=== PATIENT | male | born 1985 | race American Indian/Alaskan Native ===

== ENCOUNTER 2017-08-18 00:22 | Emergency (ER) | payer MEDICAID ==
--- NOTE | 2017-08-18 01:37 | Emergency Department Report ---
HPI - General Chief Complaint: Medical Clearance Time Seen by Provider: 08/18/17 01:21 - HPI HPI: This is a 31-year-old male who identifies as female presents to the emergency department requesting a medication refill of the HIV medication Atripla, as well as Periactin for appetite stimulation. She denies any chest pain, fever, cough, dysuria or any other physical complaints at this time and says that she only can for medication refill. She has been out of medications for 3 days. She says that she has tried to get in with the health department but keeps getting a voicemail and has been unable to make an appointment. She does not have a primary care physician or infectious disease physician. ED Past Medical Hx - Past Medical History Hx of Cancer: Yes (Oral) Hx Asthma: Yes Hx HIV: Yes - Surgical History Additional Surgical History: Left palate removal. - Social History Smoking Status: Never Smoker Substance Use Type: Marijuana - Medications Home Medications: Home Medications Medication Instructions Recorded Confirmed Last Taken Type Atripla Tablet 1 tab PO DAILY #30 08/18/17 Unknown Rx Cyproheptadine [Periactin] 4 mg PO TID #90 tablet 08/18/17 Unknown Rx ED Review of Systems ROS: Stated complaint: MED REFILL Other details as noted in HPI Comment: All other systems reviewed and negative Constitutional: denies: chills, fever Eyes: denies: eye pain, eye discharge, vision change ENT: denies: ear pain, throat pain Respiratory: denies: cough, shortness of breath, wheezing Cardiovascular: denies: chest pain, palpitations Gastrointestinal: denies: abdominal pain, nausea, diarrhea Genitourinary: denies: urgency, dysuria Musculoskeletal: denies: back pain, joint swelling, arthralgia Skin: denies: rash, lesions Neurological: denies: headache, weakness, paresthesias Physical Exam - Physical Exam Vital Signs: Vital Signs 08/18/17 00:30 Temperature 98.4 F Pulse Rate 97 H Respiratory 16 Rate Blood Pressure 131/71 O2 Sat by Pulse 98 Oximetry Physical Exam: GENERAL: The patient is well-developed well-nourished. HENT: Normocephalic. Atraumatic. Patient has moist mucous membranes. EYES: Extraocular motions are intact. Pupils equal reactive to light bilaterally. NECK: Supple. Trachea is midline. CHEST/LUNGS: Clear to auscultation. There is no respiratory distress noted. HEART/CARDIOVASCULAR: Regular. There is no tachycardia. There is no murmur. ABDOMEN: Abdomen is soft, nontender. Patient has normal bowel sounds. There is no abdominal distention. SKIN: Skin is warm and dry. NEURO: The patient is awake, alert, and oriented. The patient is cooperative. The patient has no focal neurologic deficits. The patient has normal speech. MUSCULOSKELETAL: There is no tenderness or deformity. There is no limitation range of motion. There is no evidence of acute injury. ED Course Vital Signs 08/18/17 00:30 Temperature 98.4 F Pulse Rate 97 H Respiratory 16 Rate Blood Pressure 131/71 O2 Sat by Pulse 98 Oximetry ED Medical Decision Making - Medical Decision Making The patient denies any physical complaints at this time. She is been out of her medication for 3 days. She was given a prescription refill of the HIV medication, the Periactin and she was given referrals for primary care and infectious disease. She was encouraged to return to the emergency Department with any acute distress. Critical Care Time: No Critical care attestation.: If time is entered above; I have spent that time in minutes in the direct care of this critically ill patient, excluding procedure time. ED Disposition Clinical Impression: Medication refill, History of HIV infection Disposition: TO HOME OR SELFCARE Is pt being admited?: No Condition: Good Additional Instructions: I have given you some names of primary care physicians as well as infectious disease. I do not know if these physicians take your particular insurance. Return to the emergency department with any chest pain, shortness of breath, development of fever or any acute distress. Prescriptions: Atripla Tablet 1 tab PO DAILY #30 Cyproheptadine [Periactin] 4 mg PO TID #90 tablet Referrals: JAVI KAPLAN MD [Primary Care Provider] - 3-5 Days SRAA BURGESS MD [Staff Physician] - 3-5 Days NIECY FERRIS MD [Staff Physician] - 3-5 Days [facility] [Outside] - 3-[address] [facility] [Outside] - 3-5 Days Time of Disposition: 01:38
[2017-08-18 01:41] VITALS: BP 123/78
== END 2017-08-18 01:43 | disposition home or self-care (01) ==
LOC: ED 00:22
DX: Z76.0 Encounter for issue of repeat prescription (principal); J45.909 Unspecified asthma, uncomplicated; F12.10 Cannabis abuse, uncomplicated
CPT/HCPCS: 99282

== ENCOUNTER 2017-10-21 22:27 | Emergency (ER) | payer MEDICAID | END 2017-10-21 23:55 | disposition left against medical advice (07) | LOC: ED 22:27 | DX: Z76.0 Encounter for issue of repeat prescription (principal); Z53.21 Procedure and treatment not carried out due to patient leaving prior to being seen by health care provider ==

== ENCOUNTER 2018-03-16 18:01 | Emergency (ER) | payer MEDICAID ==
--- NOTE | 2018-03-16 19:02 | Emergency Department Report ---
ED Recheck HPI - General Chief Complaint: Pain General Stated Complaint: MEDICATION REFILL Time Seen by Provider: 03/16/18 18:42 Source: patient Mode of arrival: Ambulatory Limitations: No Limitations - History of Present Illness Initial Comments: 32-year-old male to female transgender patient history of HIV presents for request for refill on Atripla. Patient is awake alert and oriented 3 denies any symptoms whatsoever. Patient in usual state of otherwise. States that they follow up at the [facility]. Has follow-up in approximately 3-1/2 weeks with primary care doctor. Has no other requests. Awake alert and oriented 3 not in acute distress. States that they ran out of medicine MD Complaint: medication refill request Returns Today for: request for prescription Symptoms Since Prior Visit: no new symptoms Context: ran out of medication Associated Symptoms: none - Related Data Previous Rx's Medication Instructions Recorded Last Taken Type Atripla Tablet 1 tab PO DAILY #30 08/18/17 Unknown Rx Cyproheptadine [Periactin] 4 mg PO TID #90 tablet 08/18/17 Unknown Rx Efavirenz/Emtricitab/Tenofovir 1 each PO QDAY #30 tablet 03/16/18 Unknown Rx [Atripla Tablet] Allergies Allergy/AdvReac Type Severity Reaction Status Date / Time acetaminophen [From Percocet] Allergy Hives Verified 08/18/17 00:39 oxycodone [From Percocet] Allergy Hives Verified 08/18/17 00:39 ED Review of Systems ROS: Stated complaint: MEDICATION REFILL Other details as noted in HPI Constitutional: denies: chills, fever Eyes: denies: eye pain, eye discharge, vision change ENT: denies: ear pain, throat pain Respiratory: denies: cough, shortness of breath, wheezing Cardiovascular: denies: chest pain, palpitations Endocrine: no symptoms reported Gastrointestinal: denies: abdominal pain, nausea, diarrhea Genitourinary: denies: urgency, dysuria Musculoskeletal: denies: back pain, joint swelling, arthralgia Skin: denies: rash, lesions Neurological: denies: headache, weakness, paresthesias Psychiatric: denies: anxiety, depression Hematological/Lymphatic: denies: easy bleeding, easy bruising ED Past Medical Hx - Past Medical History Hx Asthma: Yes Hx HIV: Yes - Surgical History Additional Surgical History: Left palate removal. - Social History Smoking Status: Current Every Day Smoker Substance Use Type: None - Medications Home Medications: Home Medications Medication Instructions Recorded Confirmed Last Taken Type Atripla Tablet 1 tab PO DAILY #30 08/18/17 Unknown Rx Cyproheptadine [Periactin] 4 mg PO TID #90 tablet 08/18/17 Unknown Rx Efavirenz/Emtricitab/Tenofovir 1 each PO QDAY #30 tablet 03/16/18 Unknown Rx [Atripla Tablet] ED Physical Exam - General Limitations: No Limitations General appearance: alert, in no apparent distress - Head Head exam: Present: atraumatic, normocephalic - Eye Eye exam: Present: normal appearance - ENT ENT exam: Present: mucous membranes moist - Neck Neck exam: Present: normal inspection - Respiratory Respiratory exam: Present: normal lung sounds bilaterally. Absent: respiratory distress - Cardiovascular Cardiovascular Exam: Present: regular rate, normal rhythm. Absent: systolic murmur, diastolic murmur, rubs, gallop - GI/Abdominal GI/Abdominal exam: Present: soft, normal bowel sounds - Rectal Rectal exam: Present: deferred - Extremities Exam Extremities exam: Present: normal inspection - Back Exam Back exam: Present: normal inspection - Neurological Exam Neurological exam: Present: alert, oriented X3 - Psychiatric Psychiatric exam: Present: normal affect, normal mood - Skin Skin exam: Present: warm, dry, intact, normal color. Absent: rash ED Course Vital Signs 03/16/18 18:17 Temperature 98.8 F Pulse Rate 75 Respiratory 18 Rate Blood Pressure 130/84 O2 Sat by Pulse 100 Oximetry ED Recheck MDM - Differential Diagnosis Prescription Refill(s) - Medical Decision Making A/P: Medication refill 1-refill on Atripla. Patient states that they will follow-up with their primary care doctor at [facility] in less than one month 2-vital signs stable for discharge Critical care attestation.: If time is entered above; I have spent that time in minutes in the direct care of this critically ill patient, excluding procedure time. ED Disposition Clinical Impression: Encounter for medication refill Disposition: DC-01 TO HOME OR SELFCARE Is pt being admited?: No Does the pt Need Aspirin: No Condition: Stable Instructions: Efavirenz/Emtricitabine/Tenofovir (By mouth) Additional Instructions: *No private health insurance is accepted.* Individuals must be undergoing testing for HIV or be HIV-positive. Click here to view the [facility] fees. press option 1 Email: [email or web address] Address: [address], [address] [place] [address] Melonie: [address] from the [place] train station Hours: M, W, Th, F: 8:15 a.m 5:00 p.m. Tues: 8:15 a.m. 12:oo noon Prescriptions: Efavirenz/Emtricitab/Tenofovir [Atripla Tablet] 1 each PO QDAY #30 tablet Time of Disposition: 18:57
[2018-03-16 19:10] VITALS: BP 118/75
== END 2018-03-16 19:08 | disposition home or self-care (01) ==
LOC: ED 18:01
DX: Z76.0 Encounter for issue of repeat prescription (principal); Z88.8 Allergy status to other drugs, medicaments and biological substances; J45.909 Unspecified asthma, uncomplicated; F17.200 Nicotine dependence, unspecified, uncomplicated
CPT/HCPCS: 99281

== ENCOUNTER 2018-11-17 03:17 | Emergency (ER) | payer MEDICAID ==
[2018-11-17 03:25] VITALS: BP 119/76
[2018-11-17] MEDS ORDERED: TRIMOX PO ONE (05:52)
[2018-11-17] MEDS ORDERED: ULTRAM PO ONE (05:52)
--- NOTE | 2018-11-17 05:57 | Emergency Department Report ---
ED ENT HPI - General Chief complaint: Dental/Oral Stated complaint: LEFT SIDE JAW PAIN Time Seen by Provider: 11/17/18 05:52 Source: patient Mode of arrival: Ambulatory Limitations: No Limitations - History of Present Illness Initial comments: Patient 33-year-old -[place] female who presents for dental pain patient has history of asthma and HIV presents for ulcer versus abscess #15 patient uses oral appliance advised that this rubbed against ago and irritated it cause an infection patient is tolerating by mouth intake there has been no fevers or chills no nausea vomiting no ear throat pain Onset/Timin -: week(s) Location: tooth # (15) Severity: moderate Severity scale (0 -10): 5 Quality: aching Consistency: constant Improves with: none Worsens with: none Context- Dental: history of dental caries, poor dental care Associated Symptoms: gum swelling, toothache. denies: pain with swallowing, tinnitus, hearing loss, discharge from ear, rhinorrhea - Related Data Previous Rx's Medication Instructions Recorded Last Taken Type Atripla Tablet 1 tab PO DAILY #30 08/18/17 Unknown Rx Cyproheptadine [Periactin] 4 mg PO TID #90 tablet 08/18/17 Unknown Rx Efavirenz/Emtricit/Tenofovr Df 1 each PO QDAY #30 tablet 03/16/18 Unknown Rx [Atripla Tablet] Docosanol [Abreva] 1 applicatio TP 5XD #1 cream..g. 05/12/18 Unknown Rx levoFLOXacin [Levaquin] 750 mg PO QDAY #7 tablet 05/12/18 Unknown Rx metroNIDAZOLE [Flagyl] 500 mg PO Q8HR #21 tablet 05/12/18 Unknown Rx Ibuprofen [Motrin] 600 mg PO Q8H PRN #20 tablet 08/29/18 Unknown Rx Oseltamivir [Tamiflu] 75 mg PO BID #14 cap 08/29/18 Unknown Rx Amoxicillin 500 mg PO TID 10 Days #30 capsule 11/17/18 Unknown Rx Chlorhexidine Mouthwash [Peridex] 15 ml MM BID #1 bottle 11/17/18 Unknown Rx Tramadol HCl [Ultram] 50 mg PO Q6H PRN #12 tablet 11/17/18 Unknown Rx Allergies Allergy/AdvReac Type Severity Reaction Status Date / Time oxycodone [From Percocet] Allergy Hives Verified 08/18/17 00:39 ED Dental HPI - General Chief complaint: Dental/Oral Stated complaint: LEFT SIDE JAW PAIN Time Seen by Provider: 11/17/18 05:52 Source: patient Mode of arrival: Ambulatory Limitations: No Limitations - Related Data Previous Rx's Medication Instructions Recorded Last Taken Type Atripla Tablet 1 tab PO DAILY #30 08/18/17 Unknown Rx Cyproheptadine [Periactin] 4 mg PO TID #90 tablet 08/18/17 Unknown Rx Efavirenz/Emtricit/Tenofovr Df 1 each PO QDAY #30 tablet 03/16/18 Unknown Rx [Atripla Tablet] Docosanol [Abreva] 1 applicatio TP 5XD #1 cream..g. 05/12/18 Unknown Rx levoFLOXacin [Levaquin] 750 mg PO QDAY #7 tablet 05/12/18 Unknown Rx metroNIDAZOLE [Flagyl] 500 mg PO Q8HR #21 tablet 05/12/18 Unknown Rx Ibuprofen [Motrin] 600 mg PO Q8H PRN #20 tablet 08/29/18 Unknown Rx Oseltamivir [Tamiflu] 75 mg PO BID #14 cap 08/29/18 Unknown Rx Amoxicillin 500 mg PO TID 10 Days #30 capsule 11/17/18 Unknown Rx Chlorhexidine Mouthwash [Peridex] 15 ml MM BID #1 bottle 11/17/18 Unknown Rx Tramadol HCl [Ultram] 50 mg PO Q6H PRN #12 tablet 11/17/18 Unknown Rx Allergies Allergy/AdvReac Type Severity Reaction Status Date / Time oxycodone [From Percocet] Allergy Hives Verified 08/18/17 00:39 ED Review of Systems ROS: Stated complaint: LEFT SIDE JAW PAIN Other details as noted in HPI Constitutional: denies: chills, fever Eyes: denies: eye pain, eye discharge, vision change ENT: dental pain. denies: ear pain, throat pain Respiratory: denies: cough, shortness of breath, wheezing Cardiovascular: denies: chest pain, palpitations Endocrine: no symptoms reported Gastrointestinal: denies: abdominal pain, nausea, diarrhea Genitourinary: denies: urgency, dysuria Musculoskeletal: denies: back pain, joint swelling, arthralgia Skin: denies: rash, lesions Neurological: denies: headache, weakness, paresthesias Psychiatric: denies: anxiety, depression Hematological/Lymphatic: denies: easy bleeding, easy bruising ED Past Medical Hx - Past Medical History Hx Congestive Heart Failure: No Hx Diabetes: No Hx Asthma: Yes Hx COPD: No Hx HIV: Yes (ANTI-VIRALS- LAST CD4 05/2018 [facility]) - Surgical History Additional Surgical History: Left palate removal. - Social History Smoking Status: Never Smoker Substance Use Type: Marijuana - Medications Home Medications: Home Medications Medication Instructions Recorded Confirmed Last Taken Type Atripla Tablet 1 tab PO DAILY #30 08/18/17 Unknown Rx Cyproheptadine [Periactin] 4 mg PO TID #90 tablet 08/18/17 Unknown Rx Efavirenz/Emtricit/Tenofovr Df 1 each PO QDAY #30 tablet 03/16/18 Unknown Rx [Atripla Tablet] Docosanol [Abreva] 1 applicatio TP 5XD #1 cream..g. 05/12/18 Unknown Rx levoFLOXacin [Levaquin] 750 mg PO QDAY #7 tablet 05/12/18 Unknown Rx metroNIDAZOLE [Flagyl] 500 mg PO Q8HR #21 tablet 05/12/18 Unknown Rx Ibuprofen [Motrin] 600 mg PO Q8H PRN #20 tablet 08/29/18 Unknown Rx Oseltamivir [Tamiflu] 75 mg PO BID #14 cap 08/29/18 Unknown Rx Amoxicillin 500 mg PO TID 10 Days #30 capsule 11/17/18 Unknown Rx Chlorhexidine Mouthwash [Peridex] 15 ml MM BID #1 bottle 11/17/18 Unknown Rx Tramadol HCl [Ultram] 50 mg PO Q6H PRN #12 tablet 11/17/18 Unknown Rx ED Physical Exam - General Limitations: No Limitations General appearance: alert, in no apparent distress - Head Head exam: Present: atraumatic, normocephalic - Eye Eye exam: Present: normal appearance, PERRL, EOMI Pupils: Present: normal accommodation - ENT ENT exam: Present: normal exam, TM's normal bilaterally, normal external ear exam - Expanded ENT Exam Expanded Ear exam: Present: normal external inspection Mouth exam: Present: normal external inspection. Absent: trismus Teeth exam: Present: dental caries, dental tenderness # (15) Throat exam: Positive: normal inspection, other (uvula midline no exudate no lesion). Negative: tonsillar erythema, tonsillomegaly, tonsillar exudate, R peritonsillar mass, L peritonsillar mass - Neck Neck exam: Present: normal inspection, full ROM, lymphadenopathy. Absent: tenderness, meningismus, thyromegaly - Respiratory Respiratory exam: Absent: wheezes, stridor, chest wall tenderness - Cardiovascular Cardiovascular Exam: Present: regular rate, normal rhythm, normal heart sounds. Absent: systolic murmur, diastolic murmur, rubs, gallop - GI/Abdominal GI/Abdominal exam: Present: soft, normal bowel sounds. Absent: distended, tenderness, rebound, bruit, hernia - Rectal Rectal exam: Present: deferred - Extremities Exam Extremities exam: Present: normal inspection, full ROM - Back Exam Back exam: Present: normal inspection, full ROM. Absent: tenderness, CVA tenderness (R), CVA tenderness (L), muscle spasm, paraspinal tenderness, vertebral tenderness, rash noted - Neurological Exam Neurological exam: Present: alert, oriented X3, CN II-XII intact, normal gait. Absent: reflexes normal - Psychiatric Psychiatric exam: Present: normal affect, normal mood - Skin Skin exam: Present: warm, dry, intact, normal color. Absent: rash ED Course Vital Signs 11/17/18 03:24 Temperature 98.8 F Pulse Rate 94 H Respiratory 18 Rate Blood Pressure 119/76 O2 Sat by Pulse 99 Oximetry ED Medical Decision Making - Medical Decision Making this is infected dental carries plan. amoxicillin , peridex, ultram follow up with [facility] in 2-3 days verbalized agreement and understanding of same. Critical care attestation.: If time is entered above; I have spent that time in minutes in the direct care of this critically ill patient, excluding procedure time. ED Disposition Clinical Impression: Infected dental carries Disposition: - TO HOME OR SELFCARE Is pt being admited?: No Does the pt Need Aspirin: No Condition: Stable Instructions: Dental Caries (ED) Prescriptions: Amoxicillin 500 mg PO TID 10 Days #30 capsule Chlorhexidine Mouthwash [Peridex] 15 ml MM BID #1 bottle Tramadol HCl [Ultram] 50 mg PO Q6H PRN #12 tablet PRN Reason: Pain , Severe (7-10) Referrals: [facility] [Outside] - 3-5 Days Forms: Work/School Release Form(ED) Time of Disposition: :03
== END 2018-11-17 06:32 | disposition home or self-care (01) ==
LOC: ED 03:17
DX: K02.9 Dental caries, unspecified (principal); J45.909 Unspecified asthma, uncomplicated; F12.10 Cannabis abuse, uncomplicated; Z88.4 Allergy status to anesthetic agent
CPT/HCPCS: 99282

== ENCOUNTER 2018-12-10 00:22 | Emergency (ER) | payer MEDICAID ==
[2018-12-10 00:42] VITALS: BP 134/74
--- NOTE | 2018-12-10 04:18 | Emergency Department Report ---
ED Eye Problem HPI - General Chief complaint: Eye Problems Stated complaint: LEFT EYE SWOLLEN REDNESS PAIN Time Seen by Provider: 12/10/18 04:00 Source: patient Mode of arrival: Ambulatory Limitations: No Limitations - History of Present Illness Initial comments: Pt is a 33 yo male who presents to the ED with c/o left eye erythema and pain that began three days ago. The patient states that he was three days ago and believes he rubbed some spices into the left eye. The patient states immediately washed the eye out with water. Pt has continued to rub the eye frequently. THe patient states there has been some crusting but no drainage. Pt denies any visual disturbance. Pt does not wear contacts. - Related Data Previous Rx's Medication Instructions Recorded Last Taken Type Atripla Tablet 1 tab PO DAILY #30 08/18/17 Unknown Rx Cyproheptadine [Periactin] 4 mg PO TID #90 tablet 08/18/17 Unknown Rx Efavirenz/Emtricit/Tenofovr Df 1 each PO QDAY #30 tablet 03/16/18 Unknown Rx [Atripla Tablet] Docosanol [Abreva] 1 applicatio TP 5XD #1 cream..g. 05/12/18 Unknown Rx Ibuprofen [Motrin 600 MG tab] 600 mg PO Q8H PRN #20 tablet 08/29/18 Unknown Rx Chlorhexidine Mouthwash [Peridex] 15 ml MM BID #1 bottle 11/17/18 Unknown Rx Erythromycin Base [Erythromycin] 0.5 inch OS QID 5 Days #3.5 12/10/18 Unknown Rx oint...g. Allergies Allergy/AdvReac Type Severity Reaction Status Date / Time oxycodone [From Percocet] Allergy Hives Verified 08/18/17 00:39 ED Review of Systems ROS: Stated complaint: LEFT EYE SWOLLEN REDNESS PAIN Other details as noted in HPI Comment: All other systems reviewed and negative ED Past Medical Hx - Past Medical History Hx Congestive Heart Failure: No Hx Diabetes: No Hx of Cancer: Yes (Left palate) Hx Asthma: Yes Hx COPD: No Hx HIV: Yes ([facility]I-[facility]IR[facility]- LAST CD4 05/2018 [facility]) - Surgical History Additional Surgical History: Left palate removal. - Social History Smoking Status: Never Smoker Substance Use Type: Marijuana - Medications Home Medications: Home Medications Medication Instructions Recorded Confirmed Last Taken Type Atripla Tablet 1 tab PO DAILY #30 08/18/17 Unknown Rx Cyproheptadine [Periactin] 4 mg PO TID #90 tablet 08/18/17 Unknown Rx Efavirenz/Emtricit/Tenofovr Df 1 each PO QDAY #30 tablet 03/16/18 Unknown Rx [Atripla Tablet] Docosanol [Abreva] 1 applicatio TP 5XD #1 cream..g. 05/12/18 Unknown Rx Ibuprofen [Motrin 600 MG tab] 600 mg PO Q8H PRN #20 tablet 08/29/18 Unknown Rx Chlorhexidine Mouthwash [Peridex] 15 ml MM BID #1 bottle 11/17/18 Unknown Rx Erythromycin Base [Erythromycin] 0.5 inch OS QID 5 Days #3.5 12/10/18 Unknown Rx oint...g. ED Physical Exam - General Limitations: No Limitations General appearance: alert, in no apparent distress - Head Head exam: Present: atraumatic, normocephalic - Eye Eye exam: Present: PERRL, EOMI, conjunctival injection (left), other (small amount of crusting present to the left upper eyelid, fluorescein stain of the left eye shows a small corneal abrasion to the left eye on the right side of the iris, PERRL, EOMI, no edema of the eyelid, no ulceration, no laceration). Absent: scleral icterus, nystagmus, periorbital swelling, periorbital tenderness - ENT ENT exam: Present: mucous membranes moist - Neurological Exam Neurological exam: Present: alert, oriented X3 - Psychiatric Psychiatric exam: Present: normal affect, normal mood - Skin Skin exam: Present: warm, dry, intact ED Course Vital Signs 12/10/18 00:25 Temperature 98.0 F Pulse Rate 82 Respiratory 18 Rate Blood Pressure 134/74 O2 Sat by Pulse 99 Oximetry ED Medical Decision Making - Medical Decision Making Pt is a 33 yo male who presents to the ED with c/o left eye erythema and pain that began three days ago. The patient states that he was three days ago and believes he rubbed some spices into the left eye. The patient states immediately washed the eye out with water. Pt has continued to rub the eye frequently. THe patient states there has been some crusting but no drainage. Pt denies any visual disturbance. Pt does not wear contacts. fluorescein stain reveals a small corneal abrasion of the left eye on the right side of the iris. will give pt antibiotics. discussed to stop rubbing the eye. will have pt follow up with an personal injury specialist in the next 2-3 days. Discussed return to the ED for any new or worsening symptoms. - Differential Diagnosis conjunctivitis, allergies, corneal abrasion Critical care attestation.: If time is entered above; I have spent that time in minutes in the direct care of this critically ill patient, excluding procedure time. ED Disposition Clinical Impression: Corneal abrasion Qualifiers: Encounter type: initial encounter Laterality: left Qualified Code(s): S05.02XA - Injury of conjunctiva and corneal abrasion without foreign body, left eye, initial encounter Disposition: TO HOME OR SELFCARE Is pt being admited?: No Does the pt Need Aspirin: No Condition: Stable Instructions: Corneal Abrasion (ED) Additional Instructions: Please use all medication as prescribed. Follow up with an personal injury specialist in the next 2-3 days. Return to the emergency room for any new or worsening symptoms. Prescriptions: Erythromycin Base [Erythromycin] 0.5 inch OS QID 5 Days #3.5 oint...g. Referrals: [facility] MD MARTY [Primary Care Provider] - 2-3 Days RAYMNOD BEASLEY MD [Staff Physician] - 2-3 Days Time of Disposition: 04:29 Print Language: MALAYSIAN
== END 2018-12-10 04:40 | disposition home or self-care (01) ==
LOC: ED 00:22
DX: S05.02XA Injury of conjunctiva and corneal abrasion without foreign body, left eye, initial encounter (principal); J45.909 Unspecified asthma, uncomplicated; F12.90 Cannabis use, unspecified, uncomplicated; Z88.8 Allergy status to other drugs, medicaments and biological substances; X58.XXXA Exposure to other specified factors, initial encounter; Y93.89 Activity, other specified; Y92.89 Other specified places as the place of occurrence of the external cause; Y99.8 Other external cause status
CPT/HCPCS: 99282

== ENCOUNTER 2019-03-19 23:58 | Emergency (ER) | payer MEDICAID ==
[2019-03-20 00:28] VITALS: BP 112/72
== END 2019-03-20 02:20 | disposition left against medical advice (07) ==
LOC: ED 23:58
DX: L29.9 Pruritus, unspecified (principal); Z53.21 Procedure and treatment not carried out due to patient leaving prior to being seen by health care provider

== ENCOUNTER 2019-09-30 22:36 | Emergency (ER) | payer MEDICAID ==
[2019-10-01 00:52] VITALS: BP 146/91
--- NOTE | 2019-10-01 02:51 | Emergency Department Report ---
Chief Complaint: Abdominal Pain Stated Complaint: ABDOMINAL PAIN/GROIN Time Seen by Provider: 10/01/19 02:36 - HPI History of Present Illness: Patient presents for STD symptoms - Exam Vital Signs: Vital Signs 09/30/19 23:51 Temperature 98.2 F Pulse Rate 84 Respiratory 18 Rate Blood Pressure 146/91 O2 Sat by Pulse 99 Oximetry MSE screening note: Focused history and physical exam performed. This patient presents for penile discharge and burning with urination after having unprotected sex 3 days ago. ,there is no fever or chills, no nausea/ vomiting , patient is tolerating by mouth intake without symptoms. I have explained to this patient that he does not have an emergency medicine condition. His vitals are stable, he is alert and oriented , ambulatory with steady gait and with no acute distress, he will follow-up with health department tomorrow for evaluation and treatment of STD. ED Medical Decision Making - Medical Decision Making pt elects to follow up with health department tomorrow for definitive treatment for STD. ED Disposition for MSE Clinical Impression: STD (male) Disposition: MED SCREENING EXAM-LEFT Is pt being admited?: No Does the pt Need Aspirin: No Condition: Stable Instructions: Sexually Transmitted Diseases (ED) Additional Instructions: follow up with health department or your primary care doctor tomorrow as stated. Referrals: [facility] [Outside] - 3-5 Days Time of Disposition: 02:52
== END 2019-10-01 03:40 | disposition left against medical advice (07) ==
LOC: ED 22:36
DX: A64 Unspecified sexually transmitted disease (principal); R36.9 Urethral discharge, unspecified; R30.9 Painful micturition, unspecified; Z88.8 Allergy status to other drugs, medicaments and biological substances
CPT/HCPCS: 99282

== ENCOUNTER 2021-08-24 06:03 | Emergency (ER) | payer MEDICAID ==
[2021-08-24 07:36] LABS: Basophils % (Auto) 0.6 % (0.0-1.8); Eosinophils # (Auto) 0.1 K/mm3 (0.0-0.4); Eosinophils % (Auto) 1.1 % (0.0-4.3); Hematocrit 38.8 % (35.5-45.6); Hemoglobin 12.9 gm/dl (11.8-15.2); Lymphocytes # (Auto) 0.6 K/mm3 (1.2-5.4); Lymphocytes % (Auto) 10.7 % (13.4-35.0); Mean Corpuscular HGB Conc 33 % (32-34); Mean Corpuscular Volume 97 fl (84-94); Monocytes # (Auto) 0.8 K/mm3 (0.0-0.8); Monocytes % (Auto) 13.7 % (0.0-7.3); Platelet Count 269 K/mm3 (140-440); Red Blood Count 4.01 M/mm3 (3.65-5.03); Red Cell Distribution Width 11.7 % (13.2-15.2)
[2021-08-24 07:45] LABS: Alanine Aminotransferase 10 units/L (7-56); Albumin 4.6 g/dL (3.9-5); BUN/Creatinine Ratio 14; Blood Urea Nitrogen 14 mg/dL (9-20); Calcium 9.6 mg/dL (8.4-10.2); Hemolysis Index 11
--- NOTE | 2021-08-24 07:54 | XRay Report ---
CHEST 2 VIEWS INDICATION / CLINICAL INFORMATION: body pain, CP. COMPARISON: 08/29/2018 FINDINGS: SUPPORT DEVICES: None. HEART / MEDIASTINUM: No significant abnormality. LUNGS / PLEURA: No significant pulmonary or pleural abnormality. No pneumothorax. ADDITIONAL FINDINGS: Scoliotic curvature the spine. Granuloma in the right upper lung IMPRESSION: 1. No acute findings. Signer Name: Darian Hayes MD Signed: 08/24/2021 7:50 AM Workstation Name: [id number]
[2021-08-24] MEDS ORDERED: MORPHINE 4 MG/1 ML INJ IV ONE (08:39)
[2021-08-24] MEDS ORDERED: dexAMETHasone 20 MG/5 ML VIAL IV ONE (08:39)
[2021-08-24] MEDS ORDERED: KETOROLAC 30 MG/1 ML INJ IV ONE (08:39)
[2021-08-24] MEDS ORDERED: ONDANSETRON 4 MG/2 ML INJ IV ONE (08:39)
[2021-08-24] MEDS ORDERED: ACETAMINOPHEN 500 MG TAB PO ONE (08:40)
--- NOTE | 2021-08-24 08:47 | Emergency Department Report ---
ED Headache HPI - General Chief Complaint: Headache Stated Complaint: HEADACHE Time Seen by Provider: 08/24/21 08:31 Source: patient Exam Limitations: no limitations - History of Present Illness Initial Comments: CC: headache HPI: This is a 35 yo male with hx of HIV on ART and hx of palate cancer who presents with headache, nasal congestion, body aches for one day. Right sided headache, throbbing. No home treatment attempted. Subjective fever. Denies sore throat, chest pain, shortness of breath, or abdominal pain. According to EMR, CD4 count 317 Patients states has been compliant with ART. Timing/Duration: 24 hours Quality: severe Head Injury Location: temporal (Right-sided) Recent Head Trauma: occasional headaches Associated Symptoms: fever/chills (Subjective fever positive chills body aches nasal congestion), nasal congestion Allergies/Adverse Reactions: Allergies oxycodone [From Percocet] Allergy (Verified 08/18/17 00:39) Hives Home Medications: Ambulatory Orders Atripla Tablet 1 tab PO DAILY #30 08/18/17 Cyproheptadine [Periactin] 4 mg PO TID #90 tablet 08/18/17 Efavirenz/Emtricit/Tenofovr Df [Atripla Tablet] 1 each PO QDAY #30 tablet 03/16/18 Docosanol [Abreva] 1 applicatio TP 5XD #1 cream..g. 05/12/18 Ibuprofen [Motrin 600 MG tab] 600 mg PO Q8H PRN #20 tablet 08/29/18 Chlorhexidine Mouthwash [Peridex] 15 ml MM BID #1 bottle 11/17/18 Erythromycin Base [Erythromycin] 0.5 inch OS QID 5 Days #3.5 oint...g. 12/10/18 Ibuprofen [Motrin 800 MG tab] 800 mg PO Q6H PRN #15 tablet 08/24/21 Promethazine [Phenergan] 25 mg PO Q6HR PRN #10 tab 08/24/21 ED Review of Systems ROS: Stated complaint: HEADACHE Other details as noted in HPI Comment: All other systems reviewed and negative Constitutional: chills, fever, malaise ENT: congestion Cardiovascular: denies: chest pain Gastrointestinal: denies: abdominal pain, nausea, vomiting Musculoskeletal: myalgia ED Past Medical Hx - Past Medical History Previous Medical History?: Yes Hx Congestive Heart Failure: No Hx Diabetes: No Hx Asthma: Yes Hx COPD: No Hx HIV: Yes ([facility]- LAST CD4 05/2018 [facility]) - Surgical History Past Surgical History?: Yes Additional Surgical History: Left palate removal 2008 - Social History Smoking Status: Never Smoker Substance Use Type: Marijuana - Medications Home Medications: Home Medications Medication Instructions Recorded Confirmed Last Taken Type Atripla Tablet 1 tab PO DAILY #30 08/18/17 Unknown Rx Cyproheptadine [Periactin] 4 mg PO TID #90 tablet 08/18/17 Unknown Rx Efavirenz/Emtricit/Tenofovr Df 1 each PO QDAY #30 tablet 03/16/18 Unknown Rx [Atripla Tablet] Docosanol [Abreva] 1 applicatio TP 5XD #1 cream..g. 05/12/18 Unknown Rx Ibuprofen [Motrin 600 MG tab] 600 mg PO Q8H PRN #20 tablet 08/29/18 Unknown Rx Chlorhexidine Mouthwash [Peridex] 15 ml MM BID #1 bottle 11/17/18 Unknown Rx Erythromycin Base [Erythromycin] 0.5 inch OS QID 5 Days #3.5 12/10/18 Unknown Rx oint...g. Ibuprofen [Motrin 800 MG tab] 800 mg PO Q6H PRN #15 tablet 08/24/21 Unknown Rx Promethazine [Phenergan] 25 mg PO Q6HR PRN #10 tab 08/24/21 Unknown Rx ED Physical Exam - General Limitations: No Limitations General appearance: alert, in no apparent distress, other (Nontoxic-appearing, ) - Head Head exam: Present: atraumatic, normocephalic - Eye Eye exam: Present: normal appearance - ENT ENT exam: Present: mucous membranes moist - Neck Neck exam: Present: normal inspection, full ROM - Respiratory Respiratory exam: Present: normal lung sounds bilaterally. Absent: respiratory distress, wheezes, rales, rhonchi - Cardiovascular Cardiovascular Exam: Present: regular rate, normal rhythm, normal heart sounds. Absent: systolic murmur, diastolic murmur, rubs, gallop - GI/Abdominal GI/Abdominal exam: Present: soft, normal bowel sounds. Absent: distended, tenderness, guarding, rebound - Rectal Rectal exam: Present: deferred - Extremities Exam Extremities exam: Present: normal inspection - Back Exam Back exam: Present: normal inspection - Neurological Exam Neurological exam: Present: alert, oriented X3 - Psychiatric Psychiatric exam: Present: normal affect, normal mood - Skin Skin exam: Present: warm, dry, intact, normal color. Absent: rash ED Course Vital Signs 08/24/21 06:50 Temperature 99.4 F Pulse Rate 97 H Respiratory 16 Rate Blood Pressure 131/75 [Left] O2 Sat by Pulse 100 Oximetry ED Medical Decision Making - Lab Data Result diagrams: 08/24/21 07:16 08/24/21 07:16 - Radiology Data Radiology results: report reviewed Patient Name: ESTEFANY JCAOBSON Gender: Female Date of : April 13, 1994 Home Phone: Referring Provider: MARY, ED Organization: [facility] Accession Number: [id number] Requested Date: August 24, 2021 01:58 Report Status: Final Requested Procedure: 1 Procedure Description: XR chest routine 2V Modality: XR Findings Reporting MD: Zach Faulkner Dictation Time: August 24, 2021 01:17 Religion Teacher: Not available Assistive Technology Trainer Date: CHEST 2 VIEWS INDICATION / CLINICAL INFORMATION: Chest Pain. COMPARISON: None available. FINDINGS: SUPPORT DEVICES: None. HEART / MEDIASTINUM: No significant abnormality. LUNGS / PLEURA: No significant pulmonary abnormality. No significant pleural effusion. No pneumothorax. ADDITIONAL FINDINGS: No significant additional findings. IMPRESSION: 1. No acute abnormality of the chest. Signer Name: Zach Faulkner MD Signed: 08/24/2021 1:17 AM Workstation Name: [id number] - Medical Decision Making Viral syndrome: Patient's symptoms resolved with IV fluid therapy. No indication of meningitis or infectious complication otherwise. Prescribed ibuprofen and promethazine. Discharged home. CBC chemistry chest radiograph unremarkable. Critical care attestation.: If time is entered above; I have spent that time in minutes in the direct care of this critically ill patient, excluding procedure time. ED Disposition Clinical Impression: Viral syndrome Disposition: 01 HOME / SELF CARE / HOMELESS Is pt being admited?: No Does the pt Need Aspirin: No Condition: Stable Instructions: Viral Illness, Adult Prescriptions: Ibuprofen [Motrin 800 MG tab] 800 mg PO Q6H PRN #15 tablet PRN Reason: pain/headache Promethazine [Phenergan] 25 mg PO Q6HR PRN #10 tab PRN Reason: Nausea Referrals: PRIMARY CARE, [Primary Care Provider] - 3-5 Days
[2021-08-24] MEDS ORDERED: SODIUM CHLORIDE 0.9% 1000 ML 1,000 ML IV ONE (08:51)
[2021-08-24] MEDS ORDERED: METOCLOPRAMIDE 10 MG/2 ML INJ IV ONE (08:51)
[2021-08-24] MEDS ORDERED: diphenhydrAMINE 50 MG/ML VIAL IV ONE (08:51)
[2021-08-24 11:28] VITALS: BP 114/63
== END 2021-08-24 11:28 | disposition home or self-care (01) ==
LOC: ED 06:03
DX: R51.9 Headache, unspecified (principal); R09.89 Other specified symptoms and signs involving the circulatory and respiratory systems; B34.9 Viral infection, unspecified; J45.909 Unspecified asthma, uncomplicated; F12.90 Cannabis use, unspecified, uncomplicated; Z88.5 Allergy status to narcotic agent
CPT/HCPCS: 36415; 71046; 80053; 85025; 96361; 96374; 96375; 99284; J1200; J1885; J2765; J7030; Q0162; J2270; J2405

== ENCOUNTER 2022-06-01 17:29 | Emergency (ER) | payer MEDICAID ==
[2022-06-01 18:36] VITALS: BP 143/81
== END 2022-06-02 00:13 | disposition left against medical advice (07) ==
LOC: ED 17:29
DX: R07.9 Chest pain, unspecified (principal); R51.9 Headache, unspecified; Z53.21 Procedure and treatment not carried out due to patient leaving prior to being seen by health care provider